=== PATIENT | female | born 1945 | race Native Hawaiian/Other Pacific Islander ===

== ENCOUNTER 2019-05-01 08:15 | Inpatient (IN) | payer OTHER ==
[~2019-05-01] VITALS: Ht 157.5 cm; Wt 78.0 kg
[2019-05-01] VITALS (30 sets, daily range): BP systolic 76–241; BP diastolic 46–662; TEMP 97.5–98; Ht 157.5 cm; Wt 78.0 kg
[2019-05-01] MEDS ORDERED: ALPR0.5T24 PO (15:56)
[2019-05-01] MEDS ORDERED: LISI20TA11 PO (15:57)
[2019-05-01] MEDS ORDERED: PARO20TA3 PO (15:57)
[2019-05-01] MEDS ORDERED: FURO20TA67 PO (15:58)
[2019-05-01] MEDS ORDERED: LOSA50TA PO (16:00)
[2019-05-01] MEDS ORDERED: PROTONIX20 MG PO (16:01)
[2019-05-01] MEDS ORDERED: PRAMIPEXOLE0.25 MG PO (16:03)
[2019-05-01] MEDS ORDERED: HYDR10TA47 PO (16:04)
[2019-05-01] MEDS ORDERED: CRESTOR20 MG PO (16:04)
[2019-05-01 21:33] LABS: PLATELET COUNT 295 K/uL (152-353)
[2019-05-01 21:49] LABS: POTASSIUM 3.4 mmol/L (3.6-5.2); SODIUM 139 mmol/L (136-145)
== END 2019-05-02 00:50 | disposition short-term general hospital (02) | DRG 80 ==
LOC: OR 08:15 → EDBD 08:30 → PCU 09:35 → ICU 21:14
PROVIDERS: ADMIT Internal Medicine
PROC: 3E0R3NZ Introduction of Analgesics, Hypnotics, Sedatives into Spinal Canal, Percutaneous Approach (ICD-10-PCS; principal; 2019-05-01)
PROC: 3E0R33Z Introduction of Anti-inflammatory into Spinal Canal, Percutaneous Approach (ICD-10-PCS; 2019-05-01)
PROC: 0BH17EZ Insertion of Endotracheal Airway into Trachea, Via Natural or Artificial Opening (ICD-10-PCS; 2019-05-01)
PROC: 5A1935Z Respiratory Ventilation, Less than 24 Consecutive Hours (ICD-10-PCS; 2019-05-01)
PROC: 06HM33Z Insertion of Infusion Device into Right Femoral Vein, Percutaneous Approach (ICD-10-PCS; 2019-05-01)
DX: R40.0 Somnolence (principal); R09.2 Respiratory arrest; T40.2X5A Adverse effect of other opioids, initial encounter; M51.16 Intervertebral disc disorders with radiculopathy, lumbar region; T38.0X5A Adverse effect of glucocorticoids and synthetic analogues, initial encounter; R29.818 Other symptoms and signs involving the nervous system; Y92.234 Operating room of hospital as the place of occurrence of the external cause; K21.9 Gastro-esophageal reflux disease without esophagitis; J44.9 Chronic obstructive pulmonary disease, unspecified; I13.10 Hypertensive heart and chronic kidney disease without heart failure, with stage 1 through stage 4 chronic kidney disease, or unspecified chronic kidney disease; N18.3 Chronic kidney disease, stage 3 (moderate); F41.8 Other specified anxiety disorders; L29.8 Other pruritus
CPT/HCPCS: 31500; 36600; 80053; 82550; 82805; 84484; 85027; 85610; 85730; 87040; 94002; 94003; 94640; 94664; C1768; J0171; J0330; J1020; J1200; J2250; J2310; J2920; J2930; J3490